=== PATIENT | female | born 1995 | race Two or more races ===

== ENCOUNTER → 2020-01-06 | Outpatient (CLI) | payer OTHER ==
[~2020-01-06] MED LIST: MULT-245 PO; PANT40TA6 PO
== END ==
LOC: LAB 08:39
PROVIDERS: ATTEND Nurse Anesthetist, Certified Registered
DX: Z01.812 Encounter for preprocedural laboratory examination (principal); Z20.828 Contact with and (suspected) exposure to other viral communicable diseases
CPT/HCPCS: U0003

== ENCOUNTER → 2020-01-10 | Day surgery (SDC) | payer OTHER ==
[~2020-01-10] MED LIST changes: +IPRATRPIUM/ALBUTEROL 0.5/2.5MG 3 ML NEBU. NEB PRN; +IV RINGERS SOLUTION,LACTATED 1,000 ML IV SCH; +MIDAZOLAM HCL PF 2 MG/2 ML VIAL. IV ONE; +ONDANSETRON PF 4 MG/2 ML VIAL. IV PRN; +PROPOFOL 10,000 MCG/ML (20ML) VIAL IV ONE
[2020-01-10 07:57] LABS: U PREG PATIENT NEGATIVE (NEG)
[2020-01-10 09:01] VITALS: BP 118/74
--- NOTE | 2020-01-13 12:09 | PATHOLOGY ---
[facility] Accession Number: [id number] . 01 Material submitted: . PART A: stomach - GASTRIC BIOPSY PART B: esophagus - DISTAL ESOPHAGUS BIOPSY. Modifiers: distal PART C: stomach - GASTRIC POLYP . 01 Clinical history: . . . 02 Diagnosis: A. "Gastric BX", biopsy: - Gastric mucosa with mild reactive changes and mild chronic inflammation. - Negative H. pylori immunohistochemical stain (block A1); control reacted appropriately. . B. "Distal esophagus BX", biopsy: - Esophageal squamous mucosa with mild reactive changes and mild chronic inflammation including mildly increased intraepithelial eosinophils; no glandular epithelium or dysplasia seen (see comment). . C. "Gastric polyp", biopsy: - Gastric mucosa with focal foveolar hyperplasia, reactive / regenerative changes and localized background mild chronic active gastritis (see comment). - Negative H. pylori immunohistochemical stain (block C1); control reacted appropriately. . (CLW:[place]; 01/12/2020) [facility] 01/13/2020 1148 Local . 02 Comment: Within specimen B, the mildly increased intraepithelial eosinophils comprise up to 15 intraepithelial eosinophils/1 HPF focally. It likely represents reflux esophagitis. Other causes of increased intraepithelial eosinophils include infections, allergic reactions and eosinophilic esophagitis. Clinical and endoscopic correlation is required. . Within specimen C, the findings may represent an inflammatory and/or hyperplastic polyp. No dysplasia is seen. Again, clinical and endoscopic correlation is required. . (CLW:mmkae; 01/12/2020) . 02 Electronically signed: . Gabbi Duckworth MD, Pathologist NPI- [id number] . 01 Gross description: . A. The specimen is received in formalin, labeled "Patel, Ginette, gastric BX" and consists of 2 fragments of pink-shen tissue measuring 0.3 x 0.3 cm and 0.6 x 0.3 cm which are entirely submitted in A1. . B. The specimen is received in formalin, labeled "Patel, Ginette, distal esophagus" and consists of a fragment of pink tissue measuring 0.4 x 0.3 cm which is entirely submitted in B1. . C. The specimen is received in formalin, labeled "Patel, Ginette, gastric polyp" and consists of a fragment of pink-shen tissue measuring 0.4 x 0.3 cm which is entirely submitted in C1. (SDY; 01/11/2020) SYU/SYU 01/11/2020 1135 Local . 02 Pathologist provided ICD-10: K29.50, K20.90 . 02 CPT . 387553, 017745, 765123, [id number] Specimen Comment: A courtesy copy of this report has been sent to [phone] Performed at: 01 [facility] [address], [place], [place] [id number] MD Gómez Vargas MD Phone: [phone] Performed at: 02 [facility] [address], [place] [id number] MD Grayson Hernandez MD Phone: [phone]
== END ==
LOC: SURG 07:31
PROVIDERS: ATTEND Emergency Medicine
DX: R10.13 Epigastric pain (principal); K21.00 Gastro-esophageal reflux disease with esophagitis, without bleeding; K44.9 Diaphragmatic hernia without obstruction or gangrene; K29.70 Gastritis, unspecified, without bleeding; Z98.84 Bariatric surgery status; Z79.899 Other long term (current) drug therapy
CPT/HCPCS: 43239; 81025; J2704; J7120

== ENCOUNTER 2020-05-27 19:30 | Emergency (ER) | payer OTHER ==
[2020-01-10 09:01] VITALS: BP 118/74
[~2020-05-27 19:30] MED LIST changes: -IPRATRPIUM/ALBUTEROL 0.5/2.5MG 3 ML NEBU. NEB PRN; -IV RINGERS SOLUTION,LACTATED 1,000 ML IV SCH; -MIDAZOLAM HCL PF 2 MG/2 ML VIAL. IV ONE; -ONDANSETRON PF 4 MG/2 ML VIAL. IV PRN; -PROPOFOL 10,000 MCG/ML (20ML) VIAL IV ONE
[2020-05-27] MEDS ORDERED: HYDROcodone/APAP 5/325MG 1 TAB TABLET PO ONE (20:30)
[2020-05-27] MEDS ORDERED: KETOROLAC 60 MG/2 ML VIAL. IM ONE (20:30)
[2020-05-27] MEDS ORDERED: ONDANSETRON ODT 4 MG TAB.RAPDIS PO ONE ×2 (20:30→21:45)
[2020-05-27] MEDS ORDERED: IV NORMAL SALINE 1,000ML 1,000 ML IV ONE (21:00)
[2020-05-27] MEDS ORDERED: ONDANSETRON PF 4 MG/2 ML VIAL. IVP ONE (21:00)
[2020-05-27] MEDS ORDERED: KETOROLAC 30 MG/ML VIAL. ONE (21:05)
[2020-05-27 21:06] LABS: BASO # 0.1 x10^3/uL (0.0-0.2); BASO % 1 % (0-3); EOS # 0.7 x10^3/uL (0.0-0.7); EOS % 6 % (0-3); HEMATOCRIT 38.3 % (36.0-47.0); HEMOGLOBIN 12.8 g/dL (12.0-15.5); LYMPH # 3.4 x10^3/uL (1.0-4.8); LYMPH % 27 % (24-48); MEAN CORPUSCULAR HEMOGLOBIN 30 pg (25-35); MEAN CORPUSCULAR HGB CONC 34 g/dL (31-37); MEAN CORPUSCULAR VOLUME 89 fL (79-100); MONO # 0.7 x10^3/uL (0.0-1.1); MONO % 5 % (0-9); NEUT % 62 % (31-73); PLATELET COUNT 276 x10^3/uL (140-400); RED BLOOD COUNT 4.33 x10^6/uL (3.50-5.40); RED CELL DISTRIBUTION WIDTH 13.2 % (11.5-14.5); WHITE BLOOD COUNT 12.9 x10^3/uL (4.0-11.0)
[2020-05-27 21:12] LABS: CALCIUM 8.9 mg/dL (8.5-10.1); CREATININE 0.8 mg/dL (0.6-1.0); GFR 86.7; POTASSIUM 3.6 mmol/L (3.5-5.1)
[2020-05-27] MEDS ORDERED: KETOROLAC 30 MG/ML VIAL. IVP ONE (21:15)
[2020-05-27 21:18] LABS: ALBUMIN 3.9 g/dL (3.4-5.0); ALBUMIN/GLOBULIN RATIO 1.1 (1.0-1.7); TOTAL BILIRUBIN 0.3 mg/dL (0.2-1.0); TOTAL PROTEIN 7.5 g/dL (6.4-8.2)
[2020-05-27] MEDS ORDERED: HYDR-2155 PO (21:31)
[2020-05-27] MEDS ORDERED: ONDA4TAB12 PO (21:31)
--- NOTE | 2020-05-27 21:32 | PHYS DOC ---
Adult General Chief Complaint Chief Complaint: ABDOMINAL PAIN HPI HPI Patient is a 25-year-old female presents emergency department complaining of right upper quadrant pain after eating beef with not show cheese and nachos approximately 4 hours ago. Patient reports nausea with out vomiting. Patient states that she has gallbladder disease, has gallstones, supposed to have her gallbladder out on Thursday at [facility] by a general surgeon there that she cannot remember the name of. Patient denies diarrhea, or constipation. Patient denies chest pains or shortness of breath. Patient denies recent fever or chills. Patient denies any other physical complaints or physical concerns. Patient reports being on her menstrual cycle now. Review of Systems Review of Systems 14 body systems of review of systems have been reviewed. See HPI for pertinent positives and negative responses, otherwise all other systems are negative, nonpertinent or noncontributory. Current Medications Current Medications Current Medications Medications (Trade) Dose Ordered Sig/Larissa Start Time Stop Time Status Last Admin Dose Admin Acetaminophen/ Hydrocodone Bitart (Lortab 5/325) 2 tab 1X ONCE 05/27/20 20:30 05/27/20 20:43 DC Ketorolac Tromethamine (Toradol 30mg Vial) 30 mg STK-MED ONCE 05/27/20 21:05 05/27/20 21:05 DC Ketorolac Tromethamine (Toradol Im) 60 mg 1X ONCE 05/27/20 20:30 05/27/20 20:43 DC Ondansetron HCl (Zofran Odt) 4 mg 1X ONCE 05/27/20 20:30 05/27/20 20:43 DC Ondansetron HCl (Zofran) 4 mg 1X ONCE 05/27/20 21:00 05/27/20 21:01 DC 05/27/20 21:08 4 MG Sodium Chloride 1,000 ml @ 1,000 mls/hr 1X ONCE 05/27/20 21:00 05/27/20 21:59 05/27/20 20:50 1,000 MLS/HR Allergies Allergies Allergies Coded Allergies Type Severity Reaction Last Updated Verified No Known Drug Allergies 01/05/20 No Physical Exam Physical Exam Constitutional: Well developed, well nourished, in moderate distress distress, non-toxic appearance. 25-year-old female holding right upper quadrant and vomit bag dry heaving during exam. HENT: Normocephalic, atraumatic, bilateral external ears normal, oropharynx moist, no oral exudates, nose normal. Eyes: PERRLA, EOMI, conjunctiva normal, no discharge. Neck: Normal range of motion, no tenderness, supple, no stridor. Cardiovascular:Heart rate regular rhythm, no murmur Lungs & Thorax: Bilateral breath sounds clear to auscultation Abdomen: Bowel sounds normal, soft, no tenderness, no masses, no pulsatile masses. Positive Díaz sign, negative McBurney's point tenderness, negative psoas sign, negative rebound tenderness. No areas of ecchymosis appreciated in the abdomen. Skin: Warm, dry, no erythema, no rash. Back: No tenderness, no CVA tenderness. Extremities: No tenderness, no cyanosis, no clubbing, ROM intact, no edema. Neurologic: Alert and oriented X 3, normal motor function, normal sensory fu nction, no focal deficits noted. Psychologic: Affect normal, judgement normal, mood normal. Current Patient Data Lab Results Laboratory Tests Test 05/27/20 20:08 05/27/20 20:40 POC Urine HCG, Qualitative hcg negative (Negative) White Blood Count 12.9 x10^3/uL (4.0-11.0) H Red Blood Count 4.33 x10^6/uL (3.50-5.40) Hemoglobin 12.8 g/dL (12.0-15.5) Hematocrit 38.3 % (36.0-47.0) Mean Corpuscular Volume 89 fL (79-100) Mean Corpuscular Hemoglobin 30 pg (25-35) Mean Corpuscular Hemoglobin Concent 34 g/dL (31-37) Red Cell Distribution Width 13.2 % (11.5-14.5) Platelet Count 276 x10^3/uL (140-400) Neutrophils (%) (Auto) 62 % (31-73) Lymphocytes (%) (Auto) 27 % (24-48) Monocytes (%) (Auto) 5 % (0-9) Eosinophils (%) (Auto) 6 % (0-3) H Basophils (%) (Auto) 1 % (0-3) Neutrophils # (Auto) 8.0 x10^3uL (1.8-7.7) H Lymphocytes # (Auto) 3.4 x10^3/uL (1.0-4.8) Monocytes # (Auto) 0.7 x10^3/uL (0.0-1.1) Eosinophils # (Auto) 0.7 x10^3/uL (0.0-0.7) Basophils # (Auto) 0.1 x10^3/uL (0.0-0.2) Sodium Level 143 mmol/L (136-145) Potassium Level 3.6 mmol/L (3.5-5.1) Chloride Level 107 mmol/L (98-107) Carbon Dioxide Level 28 mmol/L (21-32) Anion Gap 8 (6-14) Blood Urea Nitrogen 13 mg/dL (7-20) Creatinine 0.8 mg/dL (0.6-1.0) Estimated GFR (Cockcroft-Gault) 86.7 BUN/Creatinine Ratio 16 (6-20) Glucose Level 87 mg/dL (70-99) Calcium Level 8.9 mg/dL (8.5-10.1) Total Bilirubin 0.3 mg/dL (0.2-1.0) Aspartate Amino Transferase (AST) 48 U/L (15-37) H Alanine Aminotransferase (ALT) 49 U/L (14-59) Alkaline Phosphatase 86 U/L (46-116) Total Protein 7.5 g/dL (6.4-8.2) Albumin 3.9 g/dL (3.4-5.0) Albumin/Globulin Ratio 1.1 (1.0-1.7) Lipase 245 U/L (73-393) EKG EKG [] Radiology/Procedures Radiology/Procedures [] Heart Score C/O Chest Pain: No Risk Factors: Risk Factors: DM, Current or recent (<one month) smoker, HTN, HLP, family history of CAD, obesity. Risk Scores: Risk Factors: DM, Current or recent (<one month) smoker, HTN, HLP, family history of CAD, obesity. Course & Med Decision Making Course & Med Decision Making Pertinent Labs and Imaging studies reviewed. (See chart for details) 25-year-old female, vital signs reviewed, presents emergency department concerning right upper quadrant pain after eating fatty foods. Physical examination is consistent with gallbladder flareup. Will give IV fluids, Zofran, Toradol for pain, urine test. Patient is not per urine test, upon reevaluation of the patient, patient states she is now pain-free and nausea free, is ready to go home. Discussed with patient to refrain from eating fatty foods until her surgery, and this Thursday. Will give prescription for ODT ondansetron and pain medication. Patient gave verbal understanding of discharge home instructions, prescription medication use, follow-up with PCP as needed, keep surgeon appointment on Thursday, return to ER precautions or concerns, discharged home without incident. Dragon Disclaimer Dragon Disclaimer This electronic medical record was generated, in whole or in part, using a voice recognition dictation system. Departure Departure: Impression: Primary Impression: Gallbladder attack Additional Impression: Nausea Disposition: 01 DC HOME SELF CARE/HOMELESS Condition: GOOD Referrals: LULU CHASE MD (PCP) Patient Instructions: Abdominal Pain Additional Instructions: Please take medication as prescribed, keep your appointment with your surgeon this coming Thursday, return to the emergency department for worsening symptoms other concerns. EMERGENCY DEPARTMENT GENERAL DISCHARGE INSTRUCTIONS Thank you for coming to [facility] (ED) today and trusting us with you care. We trust that you had a positivie experience in our Emergency Department. If you wish to speak to the department management, you may call the director at [phone]. YOUR FOLLOW UP INSTRUCTIONS ARE FOLLOWS: 1. Do you have a private Doctor? If you do not have a private doctor, please ask for a resource list of physicians or clinics that may be able to assist you with follow up care. 2. The Emergency Physician has interpreted your x-rays. The X-Ray specialist will also review them. If there is a change in the findings, you will be notified in 48 hours when at all possible. 3. A lab test or culture has been done, your results will be reviewed and you w ill be notified if you need a change in treatment. ADDITIONAL INSTRUCTIONS AND INFORMATION: 1. Your care today has been supervised by a physician who is specially trained in emergency care. Many problems require more than one evaluation for a complete diagnosis and treatment. We recommend that you schedule your follow up appointment as recommended to ensure complete treatment of you illness or injury. If you are unable to obtain follow up care and continue to have a problem, or if your condition worsens, we recommend that you return to the ED. 2. We are not able to safely determine your condition over the phone nor are we able to give sound medical advice over the phone. For these safety reasons, if you call for medical advice we will ask you to come to the ED for further evaluation. 3. If you have any questions regarding these discharge instructions please call the ED at [phone]. SAFETY INFORMATION: In the interest of safety, wellness, and injury prevention; we encourage you to wear your sealbelt, if you smoke; quite smoking, and we encourage family to use a protective helmet for bicycling and other sporting events that present an increased risk for head injury. IF YOUR SYMPTOMS WORSEN OR NEW SYMPTOMS DEVELOP, OR YOU HAVE CONCERNS ABOUT YOUR CONDITION; OR IF YOUR CONDITION WORSENS WHILE YOU ARE WAITING FOR YOUR FOLLOW UP APPOINTMENT; EITHER CONTACT YOUR PRIMARY CARE DOCTOR, THE PHYSICIAN WHOSE NAME AND NUMBER YOU WERE GIVEN, OR RETURN TO THE ED IMMEDIATELY. Scripts Hydrocodone Bit/Acetaminophen (HYDROCODONE-APAP 5-325 ) 1 Each Tablet 1 TAB PO PRN Q6HRS PRN for PAIN, #10 TAB 0 Refills Prov: KEILY CHRISTIE APRN 05/27/20 Ondansetron (ONDANSETRON ODT) 4 Mg Tab.rapdis 1 TAB PO PRN Q6-8HRS for NAUSEA, #16 TAB 0 Refills Prov: KEILY CHRISTIE APRN 05/27/20 Problem Qualifiers KEILY CHRISTIE APRN May 27, 2020 21:32
[2020-05-27] MEDS ORDERED: ONDANSETRON 4MG ODT 4TABLET STARTPACK. PO ONE (21:39)
== END 2020-05-27 21:50 | disposition home or self-care (01) ==
LOC: ER 19:30
DX: K82.8 Other specified diseases of gallbladder (principal); R11.0 Nausea
CPT/HCPCS: 36415; 80053; 81025; 83690; 85025; 96361; 96374; 96375; 99284; J1885; J2405; J7030; Q0162